=== PATIENT | male | born 1970 | race Caucasian/White ===

== ENCOUNTER 2016-08-22 00:59 | Emergency (ER) | payer OTHER ==
[~2016-08-22] VITALS: Ht 177.8 cm; Wt 98.4 kg
[~2016-08-22 00:59] MED LIST: ADDERALL XR 2525 MG PO; CLOTRIMAZOLE-BE15 GM TP; MOTRIN800 MG PO; NORCO 7.5/321 TABLET PO; TRAMADOL HCL50 MG PO; ZESTORETIC 20-1 EAC1 PO
[2016-08-22] MEDS ORDERED: PERCOCET 5/31 TABLET PO (04:15)
[2016-08-22 04:35] VITALS: BP 158/97
== END 2016-08-22 04:35 | disposition home or self-care (01) ==
LOC: EME 00:59 → RME 00:59
DX: M51.46 Schmorl's nodes, lumbar region (principal); S39.012A Strain of muscle, fascia and tendon of lower back, initial encounter; S83.92XA Sprain of unspecified site of left knee, initial encounter; W10.8XXA Fall (on) (from) other stairs and steps, initial encounter
CPT/HCPCS: 72100; 72131; 73564; 99281; 99283

== ENCOUNTER 2017-01-09 23:06 | Emergency (ER) | payer OTHER ==
[~2017-01-09] VITALS: Ht 177.8 cm; Wt 100.0 kg
[~2017-01-09 23:06] MED LIST changes: +PERCOCET 5/31 TABLET PO
[2017-01-10] MEDS ORDERED: PERCOCET 5/31 TABLET PO (01:33)
[2017-01-10] MEDS ORDERED: FLEXERIL10 MG PO (01:33)
[2017-01-10 02:06] VITALS: BP 142/88
== END 2017-01-10 02:08 | disposition home or self-care (01) ==
LOC: EME 23:06
DX: S92.411A Displaced fracture of proximal phalanx of right great toe, initial encounter for closed fracture (principal); S83.91XA Sprain of unspecified site of right knee, initial encounter; S70.01XA Contusion of right hip, initial encounter; W01.0XXA Fall on same level from slipping, tripping and stumbling without subsequent striking against object, initial encounter; F17.200 Nicotine dependence, unspecified, uncomplicated
CPT/HCPCS: 73080; 73502; 73564; 73660; 99281; 99284; J2270

== ENCOUNTER 2018-02-26 23:00 | Emergency (ER) | payer OTHER ==
[~2018-02-26] VITALS: Ht 177.8 cm; Wt 91.1 kg
[~2018-02-26 23:00] MED LIST changes: +FLEXERIL10 MG PO
[2018-02-26 23:53] LABS: PLATELET COUNT 177 K/uL (156-360)
[2018-02-27 00:03] LABS: ALBUMIN 3.7 g/dL (3.2-4.8); CHLORIDE 97 mEq/L (99-109); POTASSIUM 3.3 mEq/L (3.7-5.4); SODIUM 142 mEq/L (136-147)
[2018-02-27 00:03] LABS: APPEARANCE CLEAR ((CLEAR)); BILIRUBIN NEGATIVE; BLOOD NEGATIVE; COLOR YELLOW ((YELLOW)); GLUCOSE (STRIP) NEGATIVE; KETONES NEGATIVE; LEUKOCYTES NEGATIVE; NITRITE NEGATIVE; PROTEIN (STRIP) NEGATIVE; SPECIFIC GRAVITY 1.011 (1.000-1.030); UCUL ADDED? NO
[2018-02-27 00:06] LABS: GLUCOSE 93 mg/dL (70-99); TOTAL PROTEIN 7.3 g/dL (6.4-8.3)
[2018-02-27 00:08] LABS: TOTAL BILIRUBIN 1.1 mg/dL (0.0-1.0)
[2018-02-27 00:09] LABS: ALKALINE PHOSPHATASE 91 IU/L (3-129); CREATININE 0.9 mg/dL (0.6-1.3); GFR ESTIMATE (CALCULATED) > 59 mL/min/ (58.99-99999)
[2018-02-27 00:11] LABS: AST (GOT) 186 IU/L (2-34); UREA NITROGEN (BUN) 3 mg/dL (9-23)
[2018-02-27 00:12] LABS: ALT (GPT) 132 IU/L (3-49)
[2018-02-27 00:18] LABS: AMPHETAMINE PRESUMPTIVE POSITIVE (500 ng/mL); BARBITURATES NEGATIVE (200 ng/mL); BENZODIAZEPINES NEGATIVE (150 ng/mL); BUPRENORPHINE NEGATIVE (10 ng/mL); COCAINE NEGATIVE (150 ng/mL); METHADONE PRESUMPTIVE POSITIVE (200 ng/mL); METHAMPHETAMINE NEGATIVE (500 ng/mL); OPIATES (MORPHINE) NEGATIVE (100 ng/mL); OXYCODONE NEGATIVE (100 ng/mL); PHENCYCLIDINE NEGATIVE (25 ng/mL); PROPOXYPHENE NEGATIVE (300 ng/mL); THC CANNABINOIDS PRESUMPTIVE POSITIVE (50 ng/mL); TRICYCLIC ANTIDEPRESSANTS NEGATIVE (300 ng/mL)
[2018-02-27 00:50] LABS: HEMATOCRIT 37.9 % (38.0-50.0); HEMOGLOBIN 13.9 G/DL (12.5-16.6); MCH 35.6 PG (29.0-34.0); MCHC 35.7 G/DL (30.0-36.0); MCV 97.4 FL (86-99); RBC DIS.WIDTH-CV 12.1 % (11.8-14.6); RBC DIS.WIDTH-SD 43.6 % (39-53); RED BLOOD COUNT 3.89 M/uL (4.00-5.50); WHITE BLOOD COUNT 6.5 K/uL (4.1-10.2)
[2018-02-27 00:51] LABS: SERUM ETHYL ALCOHOL 110 mg/dL
[2018-02-27] MEDS ORDERED: PERCOCET 5/31 TABLET PO (01:32)
[2018-02-27] MEDS ORDERED: VALIUM5 MG PO (01:32)
[2018-02-27] MEDS ORDERED: ROXICODONE5 MG PO (01:55)
[2018-02-27 02:01] VITALS: BP 135/80
== END 2018-02-27 02:02 | disposition home or self-care (01) ==
LOC: EME 23:00
PROVIDERS: Physician Assistant
DX: S39.012A Strain of muscle, fascia and tendon of lower back, initial encounter (principal); Y93.11 Activity, swimming; Y92.34 Swimming pool (public) as the place of occurrence of the external cause; M62.830 Muscle spasm of back; G89.29 Other chronic pain; F17.200 Nicotine dependence, unspecified, uncomplicated
CPT/HCPCS: 80053; 81003; 84999; 85027; 99281; 99284; G0480; J1885